=== PATIENT | female | born 1995 | race Caucasian/White ===

== ENCOUNTER 2022-03-22 03:29 | Emergency (ER) | payer OTHER ==
[~2022-03-22] VITALS: Ht 162.6 cm; Wt 109.9 kg
[2022-03-22 03:51] VITALS: BP 127/80
--- NOTE | 2022-03-22 04:25 | PHYS DOC ---
Past History Past Surgical History: Cholecystectomy General Adult EDM: Chief Complaint: MULTIPLE COMPLAINTS HPI: HPI: 26-year-old female presents with nausea, diarrhea, elevated blood sugar. Patient is diabetic and on metformin. Blood sugar on arrival was 230. Patient just found out she was yesterday. She believes she is about 5 weeks. She denies vaginal discharge, vaginal bleeding, or abdominal cramping. She has had diarrhea. She is concerned about dehydration and not having medications at home to control vomiting. Review of Systems: Review of Systems: Constitutional: Denies fever or chills Eyes: Denies change in visual acuity HENT: Denies nasal congestion or sore throat Respiratory: Denies cough or shortness of breath Cardiovascular: Denies chest pain or edema GI: Nausea, Diarrhea. Denies abdominal pain. : Denies dysuria or vaginal bleeding Musculoskeletal: Denies back pain or joint pain Integument: Denies rash Neurologic: Denies headache, focal weakness or sensory changes Endocrine: Denies polyuria or polydipsia Lymphatic: Denies swollen glands Psychiatric: Denies depression or anxiety Current Medications: Current Meds: Current Medications Medications (Trade) Dose Ordered Sig/Vinicius Start Time Stop Time Status Last Admin Dose Admin Ondansetron HCl (Zofran) 4 mg 1X ONCE 03/22/22 04:30 03/22/22 04:31 Sodium Chloride 1,000 ml @ 1,000 mls/hr 1X ONCE 03/22/22 04:30 03/22/22 05:29 Allergies: Allergies: Allergies Coded Allergies Type Severity Reaction Last Updated Verified No Known Drug Allergies 03/22/22 No Physical Exam: PE: Constitutional: Well developed, well nourished, morbidly obese, no acute dis tress, non-toxic appearance. [] HENT: Normocephalic, atraumatic, bilateral external ears normal, oropharynx moist, no oral exudates, nose normal. [] Eyes: PERRLA, EOMI, conjunctiva normal, no discharge. [] Neck: Normal range of motion, no tenderness, supple, no stridor. [] Cardiovascular: Heart rate regular rhythm, no murmur [] Lungs & Thorax: Bilateral breath sounds clear to auscultation [] Abdomen: Bowel sounds normal, soft, no tenderness, no masses, no pulsatile masses. [] Skin: Warm, dry, no erythema, no rash. [] Back: No tenderness, no CVA tenderness. [] Extremities: No tenderness, no cyanosis, no clubbing, ROM intact, no edema. [] Neurologic: Alert and oriented X 3, normal motor function, normal sensory function, no focal deficits noted. [] Psychologic: Affect normal, judgement normal, mood normal. [] Current Patient Data: Labs: Laboratory Tests Test 03/22/22 03:59 Glucose (Fingerstick) 231 mg/dL (70-99) H Vital Signs: Vital Signs Date Time Temp Pulse Resp B/P (MAP) Pulse Ox O2 Delivery O2 Flow Rate FiO2 03/22/22 03:51 98.6 124 20 127/80 (96) 99 Room Air EKG: EKG: [] Radiology/Procedures: Radiology/Procedures: [] Heart Score: C/O Chest Pain: N/A Risk Factors: Risk Factors: DM, Current or recent (<one month) smoker, HTN, HLP, family history of CAD, obesity. Risk Scores: Score 0 - 3: 2.5% MACE over next 6 weeks - Discharge Home Score 4 - 6: 20.3% MACE over next 6 weeks - Admit for Clinical Observation Score 7 - 10: 72.7% MACE over next 6 weeks - Early Invasive Strategies Course & Med Decision Making: Course & Med Decision Making Pertinent Labs and Imaging studies reviewed. (See chart for details) The patient's labs are unremarkable except for an elevated blood sugar of 230. Her anion gap is normal. hCG is 1432. We have given her a liter normal saline and Zofran. I will discharge her with a prescription for Zofran. 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 She is stable for discharge at this time. [] Dragon Disclaimer: Dragon Disclaimer: This electronic medical record was generated, in whole or in part, using a voice recognition dictation system. Departure Departure: Impression: Primary Impression: Qualified Codes: Z3A.01 - Less than 8 weeks gestation of Additional Impression: Hyperglycemia during Disposition: HOME / SELF CARE / HOMELESS Condition: STABLE Referrals: RYAN RIDER MD (PCP) Patient Instructions: Hyperglycemia, [id number], - First Trimester, [id number] Scripts Ondansetron (ONDANSETRON ODT) 4 Mg Tab.rapdis 1 TAB PO PRN Q6-8HRS PRN for VOMITING, #16 TAB Prov: JULISSA FINLEY DO 03/22/22 JULISSA FINLEY DO March 22, 2022 04:25
[2022-03-22] MEDS ORDERED: IV NORMAL SALINE 1,000ML 1,000 ML IV ONE (04:30)
[2022-03-22] MEDS ORDERED: ONDANSETRON PF 4 MG/2 ML VIAL. IVP ONE (04:30)
[2022-03-22 04:42] LABS: BASO % 0 % (0-3); EOS # 0.1 x10^3/uL (0.0-0.7); EOS % 1 % (0-3); HEMATOCRIT 37.6 % (36.0-47.0); HEMOGLOBIN 12.9 g/dL (12.0-15.5); LYMPH # 1.1 x10^3/uL (1.0-4.8); LYMPH % 12 % (24-48); MEAN CORPUSCULAR HEMOGLOBIN 29 pg (25-35); MEAN CORPUSCULAR HGB CONC 34 g/dL (31-37); MEAN CORPUSCULAR VOLUME 83 fL (79-100); MONO # 0.5 x10^3/uL (0.0-1.1); MONO % 5 % (0-9); NEUT # 8.1 x10^3uL (1.8-7.7); NEUT % 82 % (31-73); PLATELET COUNT 273 x10^3/uL (140-400); RED BLOOD COUNT 4.51 x10^6/uL (3.50-5.40); RED CELL DISTRIBUTION WIDTH 13.2 % (11.5-14.5); WHITE BLOOD COUNT 9.9 x10^3/uL (4.0-11.0)
[2022-03-22 04:54] LABS: CALCIUM 8.7 mg/dL (8.5-10.1); CREATININE 0.8 mg/dL (0.6-1.0); GFR 85.4; POTASSIUM 3.7 mmol/L (3.5-5.1)
[2022-03-22 04:59] LABS: CLARITY,URINE CLEAR; COLOR,URINE YELLOW; GLUCOSE,URINE 250 mg/dL (NEG)
[2022-03-22 05:00] LABS: BACTERIA,URINE FEW /HPF (0-FEW); NITRITE,URINE NEG (NEG); RBC,URINE 0 /HPF (0-2); SQUAMOUS EPITHELIAL CELL,UR FEW /LPF
[2022-03-22 05:00] LABS: ALBUMIN 3.5 g/dL (3.4-5.0); ALBUMIN/GLOBULIN RATIO 0.9 (1.0-1.7); TOTAL BILIRUBIN 1.1 mg/dL (0.2-1.0); TOTAL PROTEIN 7.5 g/dL (6.4-8.2)
[2022-03-22] MEDS ORDERED: ONDA4TAB12 PO (05:33)
== END 2022-03-22 05:55 | disposition home or self-care (01) ==
LOC: ER 03:29
DX: O24.911 Unspecified diabetes mellitus in pregnancy, first trimester (principal); R73.9 Hyperglycemia, unspecified; R19.7 Diarrhea, unspecified; Z3A.01 Less than 8 weeks gestation of pregnancy
CPT/HCPCS: 36415; 80053; 81001; 82947; 84702; 85025; 96361; 96374; 99283; J2405; J7030

== ENCOUNTER 2022-03-23 17:55 | Emergency (ER) | payer OTHER ==
[~2022-03-23] VITALS: Ht 162.6 cm; Wt 109.9 kg
[~2022-03-23 17:55] MED LIST: ONDA4TAB12 PO
--- NOTE | 2022-03-23 18:56 | PHYS DOC ---
Past History Past Surgical History: Cholecystectomy, Additional Past Surgical Histo: DNC General Adult EDM: Chief Complaint: VAGINAL BLEEDING HPI: HPI: ".. This is my 5 th ... but now I am spotting.. and cramping.. I was here earlier... I usually follow at [facility].. 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 I think Santiago around 8 weeks.. " Patient is a 26 year old female who presents with above hx of vaginal bleeding and estimated 8 weeks. Patient normally follows at [facility]. Patient denies any trauma. Patient denies any history immunosuppression. Did get COVID vaccination. No history of STDs. One-time lifetime sexual partner. This is her fifth . She had miscarriages on 1 and 2 on her third she had a sign on her fourth she had a daughter. Patient normally follows at [facility]. Patient denies any history immunosuppression. Patient's had prior abdomen surgery of cholecystectomy.. Review of Systems: Review of Systems: Constitutional: Denies fever or chills Eyes: Denies change in visual acuity HENT: Denies nasal congestion or sore throat Respiratory: Denies cough or shortness of breath Cardiovascular: Denies chest pain or edema GI: Cramping abdominal pain, nausea, and vaginal bleeding. Patient denies vomiting, bloody stools or diarrhea : Denies dysuria Musculoskeletal: Denies back pain or joint pain Integument: Denies rash Neurologic: Denies headache, focal weakness or sensory changes Endocrine: Denies polyuria or polydipsia Lymphatic: Denies swollen glands Psychiatric: Denies depression or anxiety Family History: Family History: Noncontributory to presentation Current Medications: Current Meds: See nursing for home meds Allergies: Allergies: Allergies Coded Allergies Type Severity Reaction Last Updated Verified No Known Drug Allergies 03/22/22 No Physical Exam: PE: Constitutional: well nourished, no acute distress, non-toxic appearance. [] HENT: Normocephalic, atraumatic, bilateral external ears normal, oropharynx moist, no oral exudates, nose normal. [] Eyes: PERRLA, EOMI, conjunctiva normal, no discharge. [] Neck: Normal range of motion, no tenderness, supple, no stridor. [] Cardiovascular:Heart rate regular rhythm, no murmur [] Lungs & Thorax: Bilateral breath sounds clear to auscultation [] Abdomen: Bowel sounds normal, soft, mild rebound tenderness tenderness, gravid, no pulsatile masses. Cholecystectomy surgery scars. Mild spotting from os. Mild tenderness with cervical movement. No obvious discharge. Rectal hard stool. Skin: Warm, dry, no erythema, no rash. [] Back: No tenderness, no CVA tenderness. [] Extremities: No tenderness, no cyanosis, no clubbing, ROM intact, no edema. No psoas. No cording. Neurologic: Alert and oriented X 3, normal motor function, normal sensory fu nction, no focal deficits noted. DTRs are +2 at patella. Psychologic: Affect anxious, judgement normal, mood normal. [] Current Patient Data: Labs: Laboratory Tests Test 03/23/22 17:39 POC Urine HCG, Qualitative hcg positive (Negative) Vital Signs: Vital Signs Date Time Temp Pulse Resp B/P (MAP) Pulse Ox O2 Delivery O2 Flow Rate FiO2 03/23/22 18:27 98.2 110 18 256/90 (145) 96 Room Air EKG: EKG: [] Radiology/Procedures: Radiology/Procedures: [][address] [place] [id number] IMAGING REPORT Signed PATIENT: SHANEKA SEGURA AACCOUNT: [id number] : 1995 LOCATION: ER AGE: 26 SEX: F EXAM STATUS: REG ER ORD. PHYSICIAN: ABDULAZIZ CABALLERO MD REASON: cramping est. 8 weeks gravid, bleeding PROCEDURE: TRANSVAGINAL EXAMINATION: US TRANSVAGINAL ULTRASOUND HSG (FIRST TRIMESTER PELVIC ULTRASOUND) CLINICAL HISTORY: Abdominal cramping, vaginal bleeding, est. 8 weeks gravid TECHNIQUE: Sonography of the pelvis was performed by transvaginal technique. COMPARISON: None. FINDINGS: Uterus: - Orientation: Anteverted - Size: 10.3 x 5.5 x 5.3 cm - Myometrium: Homogeneous echotexture - Cervix: Unremarkable Gestation: - Intrauterine Gestational Sac: Single present with normal morphologic appearance - Mean Sac Diameter: 6.5 mm, corresponding gestational age 5 weeks 3 days - Yolk Sac: Not visualized - Embryo: Not visualized - Perigestational Hemorrhage: Absent Right Ovary: - Size: 3.4 x 2.1 x 2.1 cm - Normal sonographic appearance and blood flow. Left Ovary: - Not visualized. Pelvic Free Fluid: Absent IMPRESSION: Intrauterine gestational sac corresponding to estimated gestational age 5 weeks 3 days. No visualized pole, possibly too early in to be detected. Follow-up ultrasound is recommended in 10-14 days. Electronically signed by: Salvador Jolley DO (03/23/2022 8:46 PM) [facility] DICTATED AND SIGNED BY: SALVADOR JOLLEY DO DATE: 03/23/222039 CC: RYAN RIDER MD; ABDULAZIZ CABALLERO MD ~ Heart Score: C/O Chest Pain: N/A Risk Factors: Risk Factors: DM, Current or recent (<one month) smoker, HTN, HLP, family history of CAD, obesity. Risk Scores: Score 0 - 3: 2.5% MACE over next 6 weeks - Discharge Home Score 4 - 6: 20.3% MACE over next 6 weeks - Admit for Clinical Observation Score 7 - 10: 72.7% MACE over next 6 weeks - Early Invasive Strategies Course & Med Decision Making: Course & Med Decision Making Pertinent Labs and Imaging studies reviewed. (See chart for details) Continue pad counts. Continue vitamins. Follow-up cultures. Take disc with you on follow-up. Impression: `1. Threatened miscarriage 2.. Possible IUP - no cardiac activity verified- Est 5 Weeks. 3 days 3. Blood Type= A positive + 4. Hgb 12.5 5. Beta HCG= 1868 5/9 Beta 1432 6. DM= gluc. 171 [] Dragsylvie Disclaimer: Dragsylvie Disclaimer: This electronic medical record was generated, in whole or in part, using a voice recognition dictation system. Departure Departure: Referrals: RYAN RIDER MD (PCP) Phoebe Disclaimer This chart was dictated in whole or in part using Voice Recognition software in a busy, high-work load, and often noisy Emergency Department environment. It may contain unintended and wholly unrecognized errors or omissions. ABDULAZIZ CABALLERO MD March 23, 2022 18:56
[2022-03-23] MEDS ORDERED: IV NORMAL SALINE 1,000ML 1,000 ML IV SCH (19:00)
[2022-03-23] MEDS ORDERED: ONDANSETRON PF 4 MG/2 ML VIAL. IVP ONE (19:00)
[2022-03-23] MEDS ORDERED: FAMOTIDINE 20 MG/2 ML VIAL IVP ONE (19:00)
[2022-03-23 19:16] LABS: AMPHETAMINE/METHAMPHETAMINE NEG (NEG); BARBITURATES NEG (NEG); BENZODIAZEPINES NEG (NEG); CANNABINOIDS NEG (NEG); COCAINE NEG (NEG); METHADONE NEG (NEG); OPIATES NEG (NEG); PHENCYCLIDINE NEG (NEG)
[2022-03-23 19:21] LABS: CLARITY,URINE CLEAR; COLOR,URINE YELLOW; GLUCOSE,URINE NEG (NEG); NITRITE,URINE NEG (NEG); RBC,URINE OCC /HPF (0-2); WBC,URINE OCC /HPF (0-4)
[2022-03-23 19:22] LABS: BACTERIA,URINE FEW /HPF (0-FEW); SQUAMOUS EPITHELIAL CELL,UR MOD /LPF
[2022-03-23 20:17] LABS: BASO # 0.1 x10^3/uL (0.0-0.2); BASO % 1 % (0-3); EOS # 0.1 x10^3/uL (0.0-0.7); EOS % 2 % (0-3); HEMATOCRIT 37.2 % (36.0-47.0); HEMOGLOBIN 12.5 g/dL (12.0-15.5); LYMPH # 1.8 x10^3/uL (1.0-4.8); LYMPH % 23 % (24-48); MEAN CORPUSCULAR HEMOGLOBIN 28 pg (25-35); MEAN CORPUSCULAR HGB CONC 34 g/dL (31-37); MEAN CORPUSCULAR VOLUME 84 fL (79-100); MONO # 0.5 x10^3/uL (0.0-1.1); MONO % 7 % (0-9); NEUT # 5.4 x10^3uL (1.8-7.7); NEUT % 68 % (31-73); PLATELET COUNT 278 x10^3/uL (140-400); RED BLOOD COUNT 4.44 x10^6/uL (3.50-5.40)
[2022-03-23 20:23] LABS: CALCIUM 9.4 mg/dL (8.5-10.1); CREATININE 0.6 mg/dL (0.6-1.0); POTASSIUM 3.8 mmol/L (3.5-5.1)
[2022-03-23 20:29] LABS: ALBUMIN 3.5 g/dL (3.4-5.0); DIRECT BILIRUBIN 0.2 mg/dL (0.0-0.2); TOTAL BILIRUBIN 0.8 mg/dL (0.2-1.0); TOTAL PROTEIN 6.7 g/dL (6.4-8.2)
--- NOTE | 2022-03-23 20:49 | RAD ---
EXAMINATION: US TRANSVAGINAL ULTRASOUND HSG (FIRST TRIMESTER PELVIC ULTRASOUND) CLINICAL HISTORY: Abdominal cramping, vaginal bleeding, est. 8 weeks gravid TECHNIQUE: Sonography of the pelvis was performed by transvaginal technique. COMPARISON: None. FINDINGS: Uterus: - Orientation: Anteverted - Size: 10.3 x 5.5 x 5.3 cm - Myometrium: Homogeneous echotexture - Cervix: Unremarkable Gestation: - Intrauterine Gestational Sac: Single present with normal morphologic appearance - Mean Sac Diameter : 6.5 mm, corresponding gestational age 5 weeks 3 days - Yolk Sac: Not visualized - Embryo: Not visualized - Perigestational Hemorrhage: Absent Right Ovary: - Size: 3.4 x 2.1 x 2.1 cm - Normal sonographic appearance and blood flow. Left Ovary: - Not visualized. Pelvic Free Fluid: Absent IMPRESSION: Intrauterine gestational sac corresponding to estimated gestational age 5 weeks 3 days. No visualized pole, possibly too early in to be detected. Follow-up ultrasound is recommended in 1 0-14 days. Electronically signed by: Salvador Colon DO (03/23/2022 8:46 PM) [facility]
[2022-03-23 22:30] VITALS: BP 151/94
[2022-03-25 17:43] LABS: CHLAMYDIA PROBE Negative (Negative)
== END 2022-03-23 22:30 | disposition home or self-care (01) ==
LOC: ER 17:55
DX: O46.91 Antepartum hemorrhage, unspecified, first trimester (principal); O24.911 Unspecified diabetes mellitus in pregnancy, first trimester; Z3A.01 Less than 8 weeks gestation of pregnancy
CPT/HCPCS: 36415; 76817; 80048; 80076; 80307; 81001; 81025; 84702; 85025; 85610; 85730; 86900; 86901; 87491; 87591; 96361; 96374; 96375; 99284; J2405; J3490; J7030; Q0111